=== PATIENT | male | born 1985 | race American Indian/Alaskan Native ===

== ENCOUNTER 2016-11-13 20:51 | Emergency (ER) | payer MEDICARE ==
[2016-11-13 20:51] VITALS: BMI 20.7
[2016-11-13 20:55] VITALS: BP 106/70; PULSE 84; RESP 18; TEMP 98; O2SAT 99
--- NOTE | 2016-11-13 21:19 | ED PDOC ---
HPI: General Adult Time Seen by Provider: 11/13/16 21:02 Chief Complaint (Nursing): Medical Clearance Chief Complaint (Provider): medical/psych clearance for incarceration History/Exam Limitations: no limitations Additional Complaint(s): Brought in to ER for evaluation for incarceration No complaints Reports he smoked K2 >3 hours ago Past Medical History Reviewed: Historical Data, Nursing Documentation, Vital Signs Vital Signs: Last Vital Signs Temp 98 F 11/13/16 20:54 Pulse 84 11/13/16 20:54 Resp 18 11/13/16 20:54 BP 106/70 11/13/16 20:54 Pulse Ox 99 11/13/16 21:38 - Medical History PMH: Asthma Denies: Chronic Kidney Disease - Family History Family History: States: Unknown Family Hx - Social History Current smoker - smoking cessation education provided: Yes Drugs: Other (K2) - Immunization History Hx Tetanus Toxoid Vaccination: No - Home Medications Home Medications: Ambulatory Orders Medication Instructions Recorded No Known Home Med 04/11/15 Amoxicillin 875 mg PO BID #20 tab 08/21/16 - Allergies Allergies/Adverse Reactions: Allergies Allergy/AdvReac Type Severity Reaction Status Date / Time crab Allergy RASH Verified 07/05/16 14:51 shellfish derived Allergy URTICARIA Verified 08/21/16 12:34 lobster Allergy RASH Uncoded 04/08/16 11:28 seafood Allergy RASH Uncoded 03/01/16 10:45 Review of Systems ROS Statement: Except As Marked, All Systems Reviewed And Found Negative (as per HPI) Physical Exam - Reviewed Nursing Documentation Reviewed: Yes Vital Signs Reviewed: Yes - Physical Exam Appears: Positive for: Non-toxic, No Acute Distress Head Exam: Positive for: ATRAUMATIC, NORMOCEPHALIC Skin: Positive for: Warm, Dry (keloid midline upper sternum, reported as old) Eye Exam: Positive for: EOMI, PERRL Neck: Positive for: Supple, Trachea Midline Cardiovascular/Chest: Positive for: Regular Rate, Rhythm, Chest Non Tender. Negative for: Murmur Respiratory: Positive for: Normal Breath Sounds. Negative for: Respiratory Distress Gastrointestinal/Abdominal: Positive for: Soft. Negative for: Tenderness Back: Positive for: Normal Inspection Extremity: Positive for: Normal ROM. Negative for: Deformity Lymphatic: Negative for: Adenopathy Neurologic/Psych: Positive for: Alert. Negative for: Motor/Sensory Deficits - ECG O2 Sat by Pulse Oximetry: 99 Disposition - Clinical Impression Clinical Impression: Evaluation by medical service required, Evaluation by psychiatric service required, Substance abuse - Disposition Disposition: Discharged/Transfer to Law Enforcement Disposition Time: 21:00 Condition: GOOD Additional Instructions: MEDICALLY AND PSYCHIATRICALLY STABLE FOR INCARCERATION Instructions: Cannabis Abuse (ED)
== END 2016-11-13 21:36 | disposition home or self-care (01) ==
LOC: H.ER 20:51
DX: F12.10 Cannabis abuse, uncomplicated (principal); F17.200 Nicotine dependence, unspecified, uncomplicated; J45.909 Unspecified asthma, uncomplicated